=== PATIENT | male | born 1960 | race African-American/Black ===

== ENCOUNTER 2016-12-31 22:10 | Inpatient (IN) | payer SELFPAY ==
--- NOTE | ~2016-12-31 | HP ---
History And Physical [address] [address] NAME: REX SMILEY : 56 STATUS : DIS IN PAT#: [id number] AGE: 56 ADM/REG DATE : 12/31/16 MR#: [id number] REPORT SERV DATE: 01/15/17 DICTATED BY: JOHNY HATFIELD DATE: 01/01/17 REPORT STATUS : Draft TRANSCRIBED BY: MODL DATE: 01/01/17 DATE OF ADMISSION: 12/31/2016 REPORT TITLE: History and Physical DIAGNOSES: 1. Non ST elevation myocardial infarction/acute coronary syndrome. 2. Coronary artery disease status post recent myocardial infarction status post percutaneous coronary intervention at [facility]. 3. Hypertension. 4. Diabetes mellitus. 5. Tobacco abuse. 6. Peripheral arterial occlusive disease. a. Status post recent percutaneous transluminal angioplasty of the left lower extremity. 7. Anemia. 8. Hyperkalemia. PLAN: 1. Heparin/aspirin/Lopressor/statin administration. 2. Catheterization/PCI. 3. Hospitalist consult. 4. Replete potassium. Mr. Rex Smiley is a 56-year-old male with the aforementioned medical issues as per the above, present at this point in time with left anterior chest pain associated with moderate shortness of breath on exertion. Of note, it remained up until he arrived in the emergency room here. Of note, he was administered two nitroglycerin, morphine orally. His initial troponin was 0.68, this morning it is 0.22. He currently is pain free. PAST MEDICAL HISTORY: As above. PAST SURGICAL HISTORY: As above. ALLERGIES: NONE. SOCIAL HISTORY: He does smoke tobacco. He does alcohol recreationally. FAMILY HISTORY: Positive for heart disease and hypertension. MEDICATIONS: His medical therapy includes: 1. Aspirin 81 mg daily. 2. Cyanocobalamin 100 mg daily. 3. Lisinopril 5 mg daily. 4. Metformin 500 mg daily. History And Physical [address] [address] NAME: REX SMILEY : 56 STATUS : DIS IN PAT#: [id number] AGE: 56 ADM/REG DATE : 12/31/16 MR#: [id number] REPORT SERV DATE: 01/15/17 DICTATED BY: JOHNY HATFIELD DATE: 01/01/17 REPORT STATUS : Draft TRANSCRIBED BY: CRISSY DATE: 01/01/17 5. Metoprolol 25 mg b.i.d. 6. Simvastatin 20 mg daily. PHYSICAL EXAMINATION: GENERAL: A well-built well-nourished Afro [place] male in no acute distress. VITAL SIGNS: Blood pressure is 140/70 systolic. NECK: Less than 7 cm JVP. LUNGS: Clear. CARDIAC: Regular rate and rhythm. S1, S2. No murmurs, rubs, or gallops. ABDOMEN: Soft and nontender. EXTREMITIES: No edema. LABORATORY AND DIAGNOSTIC DATA: EKG shows normal sinus rhythm. Diffuse T wave changes. Other laboratory data shows a white count 5800, hemoglobin 11.9, hematocrit 33.3, platelet count 227,000. Sodium 144, potassium 3.2, BUN is 9, and creatinine 0.76. ASSESSMENT: This patient presents with non-obstruction myocardial infarction, currently hemodynamically stable. We will plan catheterization as soon as possible. We will stop heparin approximately 10 o'clock. MELA/CRISSY Johny Hatfield M.D. / [id number] CC: Palmer Sanchez M.D.
--- NOTE | ~2016-12-31 | CN ---
Consultation Report [facility] [address] [place]. [address] NAME: HELGA MELCHOR : 56 STATUS : ADM IN PAT#: [id number] AGE: 56 ADM/REG DATE : 12/31/16 MR#: [id number] REPORT SERV DATE: 01/01/17 DICTATED BY: ABRAHAN LOPEZ DATE: 01/01/17 REPORT STATUS : Draft TRANSCRIBED BY: MODL DATE: 01/01/17 CONSULT REPORT DATE OF CONSULTATION: 01/01/2017 REASON FOR CONSULTATION: Multivessel coronary artery disease. REQUESTING PHYSICIAN: Harry Hatfield M.D. HISTORY OF PRESENT ILLNESS: This is a 56-year-old male who has a history of coronary artery disease, status post myocardial infarction with stents in July 2016 at [facility]. He has a history of high blood pressure, type 2 diabetes mellitus, and ongoing tobacco abuse. He presented to the emergency room at [facility] last night with chest pain and shortness of breath. Troponin was mildly elevated at 0.68. His chest pain resolved with oral nitroglycerin and IV morphine. The patient was taken for arteriogram this morning and found to have multivessel coronary disease including a 90% in-stent stenosis to his proximal RCA. There was also a 50% to 60% stenosis of his proximal to mid LAD with 80% stenosis to first obtuse marginal, second obtuse marginal, and third obtuse marginal. His ejection fraction was calculated around 40% to 45%. Cardiothoracic Surgery was asked to evaluate him for coronary artery bypass grafting. After talking with the patient, he says that he has been on Plavix but is unsure when his last dose was, he believes he took a dose of it yesterday. He is currently free of any chest pain or shortness of breath. I did attempt to notify his mother of the plan as dictated below, but her phone was busy. PAST MEDICAL HISTORY: Significant for coronary artery disease, type 2 diabetes mellitus, high blood pressure, peripheral arterial disease, and hyperkalemia. PAST SURGICAL HISTORY: Prior PCI as above. Prior angioplasty of left lower extremity secondary to peripheral arterial disease. SOCIAL HISTORY: Occasional alcohol abuse. Says he smokes around 1 pack per day for over 35 years. He is not . FAMILY HISTORY: Significant for coronary artery disease and high blood pressure. ALLERGIES: NO KNOWN DRUG ALLERGIES. HOME MEDICATIONS: Aspirin 81 mg per day, vitamin B12 1000 mcg p.o. daily, Pepcid 20 mg p.o. at bedtime, Advil 800 mg p.o. daily, lisinopril 5 mg p.o. twice a day, Plavix 75 mg p.o. daily with last dose reported yesterday, metformin 500 mg p.o. with breakfast and supper, Lopressor 25 mg p.o. twice a day, simvastatin 20 mg p.o. daily, and Bactrim recently started on this for a toe infection. Consultation Report [facility] [id number] [place]. [address] NAME: HELGA MELCHOR : 56 STATUS : ADM IN [facility]#: [id number] AGE: 56 ADM/REG DATE : 12/31/16 MR#: [id number] REPORT SERV DATE: 01/01/17 DICTATED BY: ABRAHAN LOPEZ DATE: 01/01/17 REPORT STATUS : Draft TRANSCRIBED BY: CRISSY DATE: 01/01/17 REVIEW OF SYSTEMS: A 10-point review of systems was obtained and is negative other than in HPI. LABORATORY DATA: White blood cell count 5.8, hemoglobin 11.9, hematocrit 33.3, and platelets 227. Sodium 144, potassium 3.2, chloride 113, bicarbonate 20, BUN 9, creatinine 0.76, and glucose 102. PHYSICAL EXAMINATION: VITAL SIGNS: From today, temperature 97.5, heart rate 67, blood pressure 162/87, respiratory rate 16, and O2 saturation 98% on room air. GENERAL: Obese male in no acute distress. NEURO: Alert and oriented x3, groggy, but arousable. Pupils are equal, round, and reactive to light and accommodation. He exhibits equal strength in bilateral upper extremities and bilateral lower extremities. HEENT: Head normocephalic and atraumatic. Nose midline with no abnormality. Teeth with good dentition. Ears with no abnormality. Sclerae clear. NECK: Supple with no thyromegaly or lymphadenopathy. LUNGS: Clear to auscultation bilaterally with normal effort. CARDIAC: S1 and S2 with no murmurs, rubs, or gallops. Carotids on auscultation with no obvious bruits. ABDOMEN: Obese, soft, nontender, with active bowel sounds. EXTREMITIES: Free of cyanosis, clubbing, or edema. ASSESSMENT AND PLAN: This is a pleasant 56-year-old male who has a history of coronary artery disease, status post stents at least to the RCA earlier this year in July 2016 at [facility]. He has a history of high blood pressure, type 2 diabetes mellitus, and ongoing tobacco abuse. He was admitted last night to the emergency room with chest pain, shortness of breath, and mildly elevated troponin consistent with NSTEMI, taken for arteriogram today which showed multivessel coronary artery disease with in stent stenosis to his RCA as mentioned above. There are multiple occlusions to his OM branches without very good targets distal to these areas. Reviewed the images with Dr. Marie and other members of the cardiothoracic surgery group, do not think the patient would receive much benefit from surgical revascularization of the occlusions on the left. Recommend percutaneous coronary intervention of RCA and lifestyle modifications. I did speak with Dr. Hatfield briefly over the phone to notify him of our recommendations. I will attempt again to talk to the patient's mother to let her know that the patient is not a surgical candidate. Dr. Marie will speak with Dr. Hatfield later this afternoon regarding the case. We appreciate the consult. JUICE/CRISSY Abrahan Lopez NP Consultation Report [address] [address] NAME: HELGA MELCHOR : 56 STATUS : ADM IN [facility]#: [id number] AGE: 56 ADM/REG DATE : 12/31/16 MR#: [id number] REPORT SERV DATE: 01/01/17 DICTATED BY: ABRAHAN LOPEZ DATE: 01/01/17 REPORT STATUS : Draft TRANSCRIBED BY: CRISSY DATE: 01/01/17 / [id number] CC: Palmer Sanchez M.D.
--- NOTE | ~2016-12-31 | OP ---
Record Of Operation [facility] [address] [place]. [address] NAME: REX SMILEY : 56 STATUS : ADM IN [facility]#: [id number] AGE: 56 ADM/REG DATE : 12/31/16 MR#: [id number] REPORT SERV DATE: 01/02/17 DICTATED BY: JOHNY HATFIELD DATE: 01/02/17 REPORT STATUS : Draft TRANSCRIBED BY: MODL DATE: 01/02/17 DATE OF PROCEDURE: 01/02/2017 INDICATION: Mr. Rex Smiley is a patient well known to me who has presented at this point in time with a iys-LN-igkujeajj myocardial infarction. He underwent stenting of the RCA in July. He has been lost to follow up. Of note, subsequently, he now presents for evaluation. APPROACH: Right common femoral artery. ANESTHESIA: IV sedation with catheterization protocol, local sedation with Xylocaine. COMPLICATIONS: None. ESTIMATED BLOOD LOSS: Less than 10 mL. ESTIMATED CONTRAST: Less than 250 mL. PROCEDURE PERFORMED: Left heart catheterization, left ventriculogram, selective coronary arteriography. Labile this. PROCEDURE DETAILS: Mr. Smiley was brought to the laborer heading in the usual fasting state. He was laid supine on the cath table. Right groin was prepped and draped in the usual sterile fashion. 1% Xylocaine was infiltrated into the right femoral vessel. Next, #-6French sheath was introduced into the right common femoral artery via modified Seldinger technique. Selective Coronary Arteriography: Next, the right and left Pradeep diagnostic catheters were advanced into the coronary ostium as well as the left main. Injections were obtained. Left Ventriculogram: Next, a pigtail catheter was advanced across the aortic valve to the left ventricle and pressures were recorded. An LV gram then was performed with injection of 40 mL contrast at a rate of 15 mL/sec to a maximum pressure of 600 psi. Next, pullback pressures were measured across the aortic valve. The patient left the laborer heading without complications. DIAGNOSES: 1. The central aortic pressure is approximately 140 to 150 mmHg. Left ventricular end- diastolic pressure is 19 to 23 mmHg. Of note, there was no significant gradient across aortic valve. 2. Selective Coronary Arteriography. a. The right coronary artery is a large artery and dominant. RCA contains a 90% eccentric stenosis within the pre-existing stent. The mid RCA contains no Record Of Operation [facility] [address] [facility] [place]. [address] NAME: REX SMILEY : 56 STATUS : ADM IN PAT#: [id number] AGE: 56 ADM/REG DATE : 12/31/16 MR#: [id number] REPORT SERV DATE: 01/02/17 DICTATED BY: JOHNY HATFIELD DATE: 01/02/17 REPORT STATUS : Draft TRANSCRIBED BY: HEATHERL DATE: 01/02/17 irregularities. The posterolateral contains a patent proximal stent. The PDA contains moderate diffuse disease and is totally occluded distally. The left main is moderate caliber and contains mild diffuse irregularities. b. The left anterior descending is a moderate-caliber vessel and contains a mid eccentric 70% stenosis. Of note, the distal part of the LAD is severely diffusely diseased. c. The first and second diagonals are small vessels and have severely diffuse disease. d. The proximal circumflex contains moderate diffuse disease. The first obtuse marginal contains an 80% to 90% proximal stenosis. The second obtuse marginal contains a diffuse 80% to 90% stenosis. The third obtuse margin contains a mid 90% stenosis. 3. left Ventriculogram: Theleft ventriculogram demonstrates moderate inferior wall hypokinesis. Estimated ejection fraction is about 40% to 42%. The anterior wall moves normally. IMPRESSION: 1. Severe multivessel coronary disease with recent occlusion of the previously placed stent in the ostium of the RCA. 2. Iebg-db-yrauiiew LV systolic dysfunction. 3. Mild elevation in LVEDP. 4. Dgn-VG-wlxprsnsr myocardial infarction. PLAN: We will present this patient's issues to the surgeons and next steps will be obtained. MELA/CRISSY Johny Hatfield M.D. / [id number] CC: Johny Hatfield M.D.
--- NOTE | ~2016-12-31 | DS ---
Discharge Summary [facility] [address] [place]. [address] NAME: HELGA MELCHOR : 56 STATUS : DIS IN PAT#: [id number] AGE: 56 ADM/REG DATE : 12/31/16 MR#: [id number] REPORT SERV DATE: 02/16/17 DICTATED BY: JOHNY HATFIELD DATE: 02/16/17 REPORT STATUS : Draft TRANSCRIBED BY: MODAlayna DATE: 02/16/17 Data Collection from hospitalization DISCHARGE DIAGNOSES: 1. Dcf-EZ-hjwurjbay myocardial infarction. 2. Hypertension. 3. Diabetes mellitus. 4. Coronary artery disease. 5. Tobacco abuse. 6. Peripheral arterial occlusive disease. 7. Anemia. 8. Hyperkalemia. CONSULTATIONS: Justino Argueta NP PROCEDURES PERFORMED: 1. Left heart catheterization, left ventriculogram, selective coronary arteriography on 01/01/2017. 2. Left heart catheterization, left ventriculogram, selective coronary arteriography, PTCA utilizing a 3.0 x 15 NC balloon to the ostium and RCA, 3.0 x 16 drug-eluting stent Rutledge was placed at the ostium of the RCA on 01/02/2017. MEDICATIONS: Aspirin 81 mg daily, Plavix 75 mg daily, vitamin B12 1000 mcg daily, Pepcid 20 mg at bedtime, Advil 800 mg daily as needed, Prinivil 5 mg twice a day, Glucophage 500 mg with breakfast and supper, Lopressor 25 mg twice a day, Zocor 20 mg daily, and Bactrim DS one tablet every 12 hours. CONDITION AT DISCHARGE: Stable. DISPOSITION: The patient was discharged home on a low-sodium, low-cholesterol, cardiac diet with activities as instructed. He would follow up with me on 01/17/2017 and at cardiac rehab on 02/08/2017. HOSPITAL COURSE: This is a 56-year-old man who presented to the hospital with left anterior chest pain associated with moderate shortness of breath on exertion. He was administered two nitroglycerin and morphine orally. His initial troponin was 0.68 and it then decreased to 0.22. His EKG showed normal sinus rhythm with diffuse T-wave changes. He was felt to have had itn-EE-vajowjeyu myocardial infarction. He was admitted to the hospital at this time for further evaluation and treatment. Upon admission, it was felt that the patient should undergo cardiac catheterization as soon as possible. He was hemodynamically stable. The patient was taken to the cardiac wharf laborer where he underwent the above-mentioned procedure. He tolerated this well, and there were no complications. He was seen by Justino Argueta. The arteriogram had revealed multivessel coronary artery disease including 90% in-stent stenosis to the proximal RCA. There was 50% to 60% stenosis of the proximal to mid LAD with 80% stenosis to the first obtuse marginal, second obtuse marginal, and third obtuse marginal. His ejection fraction was calculated around 40% to 45%. Cardiothoracic Surgery was asked to evaluate the patient for coronary Discharge Summary [address] [address] NAME: HELGA MELCHOR : 56 STATUS : DIS IN PAT#: [id number] AGE: 56 ADM/REG DATE : 12/31/16 MR#: [id number] REPORT SERV DATE: 02/16/17 DICTATED BY: JOHNY HATFIELD DATE: 02/16/17 REPORT STATUS : Draft TRANSCRIBED BY: CRISSY DATE: 02/16/17 artery bypass grafting. After speaking with the patient, he said that he had been on Plavix, but was unsure when his last dose was. He thought he took it on the date of admission. He was currently free of chest pain or shortness of breath. The images were reviewed with Dr. Marie and other members of the Cardiothoracic Surgery Team, who did not think the patient would receive much benefit from surgical revascularization of the occlusions on the left. Percutaneous coronary intervention of the right coronary artery and lifestyle modifications were recommended. On 01/02/2017, the patient was taken back to the cardiac wharf laborer where he underwent the above-mentioned procedure. He tolerated this well, and there were no complications. Discharge planning was performed on 01/03/2017, he had no new complaints. He was alert and cooperative. Discharge instructions were given. Due to his improved and stable condition, he was discharged home with the above-stated instructions. Information collected by: Aubrie Toscano I submit the above information as my discharge summary. MELODY/CRISSY Johny Hatfield M.D. / [id number] CC: Palmer Sanchez M.D. Nathan S. Woody, NP
--- NOTE | ~2016-12-31 | OP ---
Record Of Operation [facility] [address] [place]. [address] NAME: REX SMILEY : 56 STATUS : ADM IN [facility]#: [id number] AGE: 56 ADM/REG DATE : 12/31/16 MR#: [id number] REPORT SERV DATE: 01/02/17 DICTATED BY: JOHNY HATFIELD DATE: 01/02/17 REPORT STATUS : Draft TRANSCRIBED BY: MODL DATE: 01/02/17 DATE OF PROCEDURE: 01/02/2017 INDICATIONS: Non-ST elevation myocardial infarction. The patient has been turned down open operation. The plan is to do RCA intervention. COMPOSING MACHINE OPERATOR/TENDER: Johny Hatfield M.D. APPROACH: Right common femoral artery. ANESTHESIA: IV sedation with catheterization protocol, local sedation with Xylocaine. COMPLICATION: None. ESTIMATED BLOOD LOSS: Less than 10 mL. ESTIMATED CONTRAST: Less than 300 mL. PROCEDURES PERFORMED: 1. Left heart catheterization, left ventriculogram, selective coronary arteriography. 2. PTCA utilizing a 3.0 x 15 NC balloon to the ostium and RCA. 3. A 3.0 x 16 drug-eluting stent, Rutledge, was placed at the ostium of the RCA. ANTICOAGULATION: Angiomax. ANTIPLATELET THERAPY: Brilinta 180 mg. OPERATIVE TECHNIQUE: Mr. Rex Smiley was brought to the produce laborer in the usual fasting state and was placed upon on the cath table. Right groin was prepped and draped in the usual sterile fashion. 1% Xylocaine was infiltrated into the right femoral vessel. Next, a 6-Iranian sheath introduced in the right common femoral artery via the modified Seldinger technique. Next, a German catheter was advanced to the ostium of the RCA. Injection were obtained. Next, a Choice PT wire was then placed on RCA. Next, predilatation was performed at 12 atmospheres. Postdilatation, the stent was deployed at approximately 12 atmospheres. At the end of procedure, there was noted excellent angiographic results with JENNY-3 flow. IMPRESSION: Preintervention: 90% eccentric stenosis in the ostium of the RCA. Postintervention: 0% residual stenosis. There was continued occlusion of the distal portion of the PDA. IMPRESSION: Successful PCI/drug eluting stent to the proximal RCA. PLAN: Discharged on medical therapy . Record Of Operation [facility] [address] [place]. [address] NAME: REX SMILEY : 56 STATUS : ADM IN PAT#: [id number] AGE: 56 ADM/REG DATE : 12/31/16 MR#: [id number] REPORT SERV DATE: 01/02/17 DICTATED BY: JOHNY HATFIELD DATE: 01/02/17 REPORT STATUS : Draft TRANSCRIBED BY: MODL DATE: 01/02/17 RM/CRISSY Johny Hatfield M.D. / [id number] CC: Johny Hatfield M.D.
[2016-12-31 22:27] LABS: BASOPHILS 0.3 %; BASOPHILS ABSOLUTE 0.02 10/3/uL (0.0-0.16); EOSINOPHILS 2.4 %; EOSINOPHILS ABSOLUTE 0.14 10/3/uL (0.0-0.53); ER CBC TAT 0 Hrs 05 Mins; HEMATOCRIT 33.3 % (40.0-51.0); HEMOGLOBIN 11.9 g/dL (13.6-17.8); IMMATURE GRANULOCYTES 0.2 %; IMMATURE GRANULOCYTES ABSOLUTE 0.01 10/3/uL (0.0-0.11); LYMPHOCYTES 46.7 %; LYMPHOCYTES ABSOLUTE 2.72 10/3/uL (0.67-4.30); MANUAL DIFF NO %; MEAN CORPUS HGB CONC 35.7 g/dL (32.0-36.0); MEAN CORPUSCULAR HEMOGLOB 34.1 pg (26.0-34.0); MEAN CORPUSCULAR VOLUME 95.4 fL (80-100); MEAN PLATELET VOLUME 10.2 fL (9.2-13.0); MONOCYTES 5.8 %; MONOCYTES ABSOLUTE 0.34 10/3/uL (0.21-1.20); NEUTROPHILS 44.6 %; PLATELET COUNT 227 10/3/uL (150-400); RED CELL COUNT 3.49 10/6/uL (4.7-6.1); WHITE BLOOD CELLS 5.8 10/3/uL (4.5-10.5)
[2016-12-31 22:42] LABS: A/G RATIO 0.9 (0.7-1.9); ALBUMIN 3.5 G/DL (3.5-5.0); BUN (BLOOD UREA NITROGEN) 9 MG/DL (6-23); CALCIUM, SERUM 8.8 MG/DL (8.5-10.4); CHLORIDE, SERUM 113 MMOL/L (96-112); CO2 (CARBON DIOXIDE) 20 MMOL/L (24-34); CREATININE 0.76 MG/DL (0.70-1.30); GFR AFRICAN AMERICAN 117 ML/MIN (>=60); GFR NON AFRICAN AMERICAN 101 ML/MIN (>=60); GLOBULIN 3.8 G/DL (2.5-4.1); POTASSIUM, SERUM 3.2 MMOL/L (3.5-5.3); SGOT(AST) 14 U/L (5-40); SGPT(ALT) 16 U/L (5-65); SODIUM, SERUM 144 MMOL/L (135-148); TOTAL BILIRUBIN 0.1 MG/DL (0-1.2); TOTAL PROTEIN 7.3 G/DL (6.0-8.5)
[2016-12-31 22:43] LABS: ALKALINE PHOSPHATASE 74 U/L (45-117); GLUCOSE, SERUM 102 MG/DL (60-99)
[2016-12-31 22:44] LABS: TROPONIN I 0.22 NG/ML (<0.05)
[2016-12-31] MEDS ORDERED: PEP20 PO ×2 (22:50→23:12)
[2016-12-31] MEDS ORDERED: BACTRIM DS1 TAB PO (22:51)
[2016-12-31] MEDS ORDERED: LOP25 PO ×2 (22:51→23:12)
[2016-12-31] MEDS ORDERED: ASAB PO (22:51)
[2016-12-31] MEDS ORDERED: ZOCOR20 PO ×2 (22:52→23:12)
[2016-12-31] MEDS ORDERED: PRIN5 PO ×2 (22:52→23:13)
[2016-12-31] MEDS ORDERED: GLUCPH PO ×2 (22:53→23:11)
[2016-12-31] MEDS ORDERED: BACDS PO (23:13)
[2016-12-31] MEDS ORDERED: HALF81 PO (23:14)
[2016-12-31] MEDS ORDERED: CYANO1000T PO (23:14)
[2016-12-31] MEDS ORDERED: ADVIL PO (23:14)
[2017-01-01 06:19] LABS: CHOL/HDL RATIO(NOT ORDER) 3.7 (0-5); TROPONIN I 0.68 NG/ML (<0.05)
[2017-01-01 09:03] LABS: INTERNATIONAL NORMAL RATI 1.2 UNITS (-); PROTIME (NOT ORD) 15.5 SEC (12.0-14.5)
[2017-01-02 05:43] LABS: BASOPHILS 0.3 %; BASOPHILS ABSOLUTE 0.02 10/3/uL (0.0-0.16); EOSINOPHILS 3.1 %; EOSINOPHILS ABSOLUTE 0.18 10/3/uL (0.0-0.53); HEMATOCRIT 33.2 % (40.0-51.0); HEMOGLOBIN 11.6 g/dL (13.6-17.8); IMMATURE GRANULOCYTES 0.2 %; IMMATURE GRANULOCYTES ABSOLUTE 0.01 10/3/uL (0.0-0.11); LYMPHOCYTES 53.5 %; LYMPHOCYTES ABSOLUTE 3.07 10/3/uL (0.67-4.30); MEAN CORPUS HGB CONC 34.9 g/dL (32.0-36.0); MEAN CORPUSCULAR HEMOGLOB 33.6 pg (26.0-34.0); MEAN CORPUSCULAR VOLUME 96.2 fL (80-100); MEAN PLATELET VOLUME 10.7 fL (9.2-13.0); MONOCYTES 8.4 %; MONOCYTES ABSOLUTE 0.48 10/3/uL (0.21-1.20); NEUTROPHILS 34.5 %; NEUTROPHILS ABSOLUTE 1.98 10/3/uL (2.02-8.40); PLATELET COUNT 226 10/3/uL (150-400); RBC DISTRIBUTION WIDTH 14.8 % (12.0-16.0); RED CELL COUNT 3.45 10/6/uL (4.7-6.1); WHITE BLOOD CELLS 5.7 10/3/uL (4.5-10.5)
[2017-01-02 05:46] LABS: MANUAL DIFF NO %
[2017-01-03] MEDS ORDERED: PLAVIX PO (09:00)
== END 2017-01-03 09:50 | disposition home or self-care (01) | DRG 247 ==
LOC: ER 22:10 → 5NO 23:52 → SSU1 01-02 08:16
PROVIDERS: Emergency Medicine; Internal Medicine Cardiovascular Disease
PROC: 027034Z Dilation of Coronary Artery, One Artery with Drug-eluting Intraluminal Device, Percutaneous Approach (ICD-10-PCS; principal; 2017-01-02)
PROC: 4A023N7 Measurement of Cardiac Sampling and Pressure, Left Heart, Percutaneous Approach (ICD-10-PCS; 2017-01-02)
PROC: B2151ZZ Fluoroscopy of Left Heart using Low Osmolar Contrast (ICD-10-PCS; 2017-01-02)
PROC: B2111ZZ Fluoroscopy of Multiple Coronary Arteries using Low Osmolar Contrast (ICD-10-PCS; 2017-01-02)
DX: I21.4 Non-ST elevation (NSTEMI) myocardial infarction (principal); E11.51 Type 2 diabetes mellitus with diabetic peripheral angiopathy without gangrene; E87.5 Hyperkalemia; I10 Essential (primary) hypertension; D64.9 Anemia, unspecified; I25.10 Atherosclerotic heart disease of native coronary artery without angina pectoris; F17.210 Nicotine dependence, cigarettes, uncomplicated; Z79.84 Long term (current) use of oral hypoglycemic drugs; Z79.82 Long term (current) use of aspirin; Z95.5 Presence of coronary angioplasty implant and graft; Z82.49 Family history of ischemic heart disease and other diseases of the circulatory system
CPT/HCPCS: 71010; 80053; 80061; 82962; 84132; 84460; 84484; 85025; 85347; 85610; 85730; 93005; 93458; 99152; 99285; A9270-GY; C1725; C1769; C1874; C1887; C1894; C9600; J0360; J0583; J2250; J2405; J3010; Q9967